=== PATIENT | female | born 1970 | race Two or more races ===

== ENCOUNTER → 2017-09-22 | Outpatient (CLI) | payer OTHER ==
[~2017-09-22] VITALS: Ht 152.4 cm; Wt 72.6 kg
== END | disposition home or self-care (01) ==
LOC: PPHC 10:18
DX: B34.9 Viral infection, unspecified (principal)

== ENCOUNTER 2017-11-11 08:26 | Outpatient (CLI) | payer OTHER | END 2017-11-11 08:39 | disposition home or self-care (01) | LOC: MAMO-SONO 08:26 | DX: Z12.31 Encounter for screening mammogram for malignant neoplasm of breast (principal); N64.4 Mastodynia; N84.8 Polyp of other parts of female genital tract ==

== ENCOUNTER 2020-02-22 11:56 | Outpatient (CLI) | payer OTHER | END 2020-02-22 12:19 | disposition home or self-care (01) | LOC: RAD 11:56 | PROVIDERS: ATTEND Obstetrics & Gynecology Maternal & Fetal Medicine | DX: Q75.8 Other specified congenital malformations of skull and face bones (principal) ==

== ENCOUNTER 2023-05-03 14:05 | Outpatient (CLI) | payer OTHER | END 2023-05-03 14:13 | disposition home or self-care (01) | LOC: RAD 14:05 | PROVIDERS: ATTEND Specialist | DX: Z01.818 Encounter for other preprocedural examination (principal); Z01.810 Encounter for preprocedural cardiovascular examination ==